=== PATIENT | female | born 1985 | race Caucasian/White ===

== ENCOUNTER 2021-05-18 15:39 | Emergency (ER) | payer OTHER ==
[~2021-05-18] VITALS: Ht 154.9 cm; Wt 68.0 kg
--- NOTE | ~2021-05-18 | EMS ---
[facility] [address] [place] [address] EMS Patient Care Report Name: SYD LEYVA Room #: REG TREVA Jean-Baptiste#: [id number] Admission: 05/18/21 Attend Phys: Discharge: Date of : 81 Report #: [id number] THIS REPORT FOR: //name// Report Transmitted: 05/18/2021 15:53 EMS Care Summary [facility] MED-ACT Incident [id number] @ 05/18/2021 15:05 Incident Location [address] [place] [id number] Patient SYD LEYVA Female, 36 Years 1985 Patient Address [address] [place] [id number] Patient History Anaphylaxis, Patient Allergies Coconut oil allergy, Patient Medications Epinephrine Auto-injector, Chief Complaint Allergic reaction following eating cookies Disposition Transported No Lights/[place] Dispatch Reason Allergic Reaction/Stings [facility] To [facility] Narrative Dispatched code three on a difficulty breathing that was upgraded to a code one allergic reaction. 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 FD state that she had progressed to this state rapidly. When she came in initially she was able [facility] [address] [place] [address] EMS Patient Care Report Name: SYD LEYVA Room #: REG TREVA Jean-Baptiste#: [id number] Admission: 05/18/21 Attend Phys: Discharge: Date of : 81 Report #: [id number] to talk and breathing normally. Pt told them that she is allergic to coconuts and had accidently ingested cookies with coconut oil in it. She normally has an auto injector but does not have one today. IM epi was immediately given as an IV was being established. Within just a couple of minutes, Pt began to talk in full sentences and her skin cleared up. 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 Today she had cookies that she was told did not have any coconut products in it but was apparently a not the case. Pt denies allergies to anything else or any other significant medical Hx. Pt [facility] able [facility] stand and [facility] before being buck[facility] in. Pt reports feeling significantly better after the epi injection and duoneb. Pt was brought to MICU and transportation was started, vitals remained stable through out. Upon arrival Pt remarked that she was starting to feel tightness in her chest and throat again. A nurse was immediately alerted, EMS still had EPI left to give and offered to give a dose since transfer of care hadn't officially happened. Nurse told EMS not to give epi, report was given and Pt was left in ED receiving continued care. Initial Vitals @15:21P: 98,EtCO2: 31,SpO2: 100, @PTAP: 127,BP: 169/101, @15:38P: 98,R: 25,BP: 136/87,EtCO2: 29, @15:27P: 97,R: 25,BP: 126/74,SpO2: 100, @PTAP: 130,R: 28,BP: 146/105,GCS: 15,SpO2: 100,Revised Trauma: 12, @15:22P: 99,R: 51,BP: 148/86,Pain: 0/10,GCS: 15,EtCO2: 32,SpO2: 100,Revised Trauma: 11, Impression Allergic Reaction Procedures @15:17 Epinephrine 1:1 - 0.3 Milligrams (mg) - Intramuscular (IM) Response: Improved @15:16 IV Therapy - Saline Lock 10cc (20 ga) Site: Antecubital-Left Response: UnchangedSucceeded @15:17 Albuterol - 2.5 Milligrams (mg) - Nebulized Response: Improved @PTAOxygen FlowRate: 15 Device: Non Re-breather Mask (NRB) Response: ImprovedSucceeded @15:17 Ipratropium - 0.5 Milligrams (mg) - Nebulized Response: Improved Timeline KNIFE BLADE POLISHER,Oxygen FlowRate: 15 Device: Non Re-breather Mask (NRB) Response: [place], [facility] [address] [place] [address] EMS Patient Care Report Name: SYD LEYVA Will Room #: REG Estiven#: [id number] Admission: 05/18/21 Attend Phys: Discharge: Date of : 81 Report #: [id number] KNIFE BLADE POLISHER,BP: 169/101 M,PULSE: 127,RR: R,SPO2: Ox,ETCO2: ,BG: ,PAIN: ,GCS: , KNIFE BLADE POLISHER,BP: 146/105 M,PULSE: 130,RR: 28 R,SPO2: 100 Ox,ETCO2: ,BG: ,PAIN: ,GCS: 15, 15:05,Call Received 15:05,Psap Call 15:05,Dispatched 15:05,En Route 15:13,On Scene 15:14,At Patient 15:16,IV Therapy - Saline Lock 10cc 20 ga Site: Antecubital-Left,Response: UnchangedSucceeded, 15:17,Epinephrine 1:1 - 0.3 Milligrams (mg) - Intramuscular (IM),Response: Improved 15:17,Albuterol - 2.5 Milligrams (mg) - Nebulized,Response: Improved 15:17,Ipratropium - 0.5 Milligrams (mg) - Nebulized,Response: Improved 15:21,BP: / M,PULSE: 98,RR: R,SPO2: 100 Ox,ETCO2: 31 ,BG: ,PAIN: ,GCS: , 15:22,BP: 148/86 M,PULSE: 99,RR: 51 R,SPO2: 100 Ox,ETCO2: 32 ,BG: ,PAIN: 0,GCS: 15, 15:27,BP: 126/74 M,PULSE: 97,RR: 25 R,SPO2: 100 Ox,ETCO2: ,BG: ,PAIN: ,GCS: , 15:29,Depart Scene 15:37,At Destination 15:38,BP: 136/87 M,PULSE: 98,RR: 25 R,SPO2: Ox,ETCO2: 29 ,BG: ,PAIN: ,GCS: , 15:58,Call Closed Disclaimer [email or web address] Copyright 2020 [employer] This EMS Care Summary contains data elements from the applicable legal record (which may be displayed differently). It is designed to provide pertinent information for the following purposes: continuity of care, clinical quality, and state data reporting. The complete legal record is available to ED staff and administrators of the receiving hospital in [employer] Patient Tracker. All data is provided "as is."
[2021-05-18 16:45] LABS: CALCIUM 8.5 mg/dL (8.5-10.1); CREATININE 1.1 mg/dL (0.6-1.0); POTASSIUM 3.5 mmol/L (3.5-5.1)
[2021-05-18] MEDS ORDERED: EPIPEN 2-P0.3 MG/0.3 IM (19:09)
[2021-05-18 19:43] VITALS: BP 115/79
== END 2021-05-18 19:45 | disposition home or self-care (01) ==
LOC: ER 15:39
PROVIDERS: Nurse Practitioner
DX: T78.09XA Anaphylactic reaction due to other food products, initial encounter (principal); Z98.890 Other specified postprocedural states; Z91.018 Allergy to other foods